=== PATIENT | female | born 1985 | race Caucasian/White ===

== ENCOUNTER 2017-03-07 05:32 | Outpatient (CLI) | payer MEDICAID ==
[~2017-03-07] VITALS: Ht 172.7 cm; Wt 77.1 kg
[~2017-03-07 05:32] MED LIST: BCP; DOCU100C37 PO; DOXY100C2 PO; HYDR-34 PO; HYDR-3583 PO; HYOS0.1217 PO; IBUP-1780 PO; MECL-124 PO; METR500T PO; NAPR-243 PO; NORG1TAB15 PO; OCP; ONDAN4ODT PO; ORTHOTRYCYCLINE; OXYC-465 PO; PNT40TEC PO; PNV91TAB3 PO; PRM25T PO; SCOP1PAT TD; [UNRECOGNIZED DRUG - OTHER] PO
[2017-03-07] MEDS ORDERED: NORG1TAB14 PO (10:19)
== END 2017-03-07 13:47 ==
LOC: PREOP 05:32
PROVIDERS: ATTEND Obstetrics & Gynecology
DX: Z01.818 Encounter for other preprocedural examination (principal); N93.8 Other specified abnormal uterine and vaginal bleeding; N92.1 Excessive and frequent menstruation with irregular cycle; D64.9 Anemia, unspecified

== ENCOUNTER 2017-04-06 17:15 | Emergency (ER) | payer BC ==
[~2017-04-06] VITALS: Ht 170.2 cm; Wt 77.1 kg
[~2017-04-06 17:15] MED LIST changes: +DOCU-143 PO; +NORG1TAB14 PO
[2017-04-06 20:19] LABS: BILIRUBIN,URINE NEGATIVE (NEGATIVE); CLARITY,URINE CLEAR; COLOR,URINE YELLOW; GLUCOSE, URINE (UA) NEGATIVE (NEGATIVE); KETONES,URINE 1+ (NEGATIVE); LEUKOCYTE ESTERASE ,URINE NEGATIVE (NEGATIVE); NITRITE,URINE NEGATIVE (NEGATIVE); PH,URINE 6.5 (5-9); PROTEIN,URINE NEGATIVE (NEGATIVE); UROBILINOGEN,URINE NORMAL (NORMAL)
[2017-04-06 20:20] LABS: BASOPHILS % (AUTO) 0 % (0-10); EOSINOPHILS # (AUTO) 0.5 10^3/uL (0.0-0.3); EOSINOPHILS % (AUTO) 7 % (0-10); HEMATOCRIT 40 % (35-52); HEMOGLOBIN 14.8 G/DL (11.5-16.0); LYMPHOCYTES # (AUTO) 2.4 X 10^3 (1.0-4.0); LYMPHOCYTES % (AUTO) 35 % (12-44); MEAN CORPUSCULAR HEMOGLOBIN 31 PG (25-34); MEAN CORPUSCULAR HGB CONC 37 G/DL (32-36); MEAN CORPUSCULAR VOLUME 84 FL (80-99); MONOCYTES # (AUTO) 0.4 X 10^3 (0.0-1.0); MONOCYTES % (AUTO) 6 % (0-12); NEUTROPHILS # (AUTO) 3.6 X 10^3 (1.8-7.8); NEUTROPHILS % (AUTO) 52 % (42-75); PLATELET COUNT 266 10^3/uL (130-400); RED BLOOD COUNT 4.76 10^6/uL (4.35-5.85); RED CELL DISTRIBUTION WIDTH 11.8 % (10.0-14.5); WHITE BLOOD COUNT 6.9 10^3/uL (4.3-11.0)
[2017-04-06 20:38] LABS: BACTERIA,URINE TRACE /HPF; RBC,URINE 25-50 /HPF; WBC,URINE RARE /HPF
[2017-04-06 20:40] LABS: ALANINE AMINOTRANSFERASE 14 U/L (0-55); ALBUMIN 4.3 GM/DL (3.2-4.5); ALKALINE PHOSPHATASE 69 U/L (40-136); BILIRUBIN,TOTAL 0.8 MG/DL (0.1-1.0); BUN/CREATININE RATIO 7; CALCIUM 9.2 MG/DL (8.5-10.1); CARBON DIOXIDE 25 MMOL/L (21-32); CHLORIDE 105 MMOL/L (98-107); CREATININE SERUM 0.75 MG/DL (0.60-1.30); GFR ESTIMATED > 60; GLUCOSE 88 MG/DL (70-105); POTASSIUM 3.3 MMOL/L (3.6-5.0); SODIUM 141 MMOL/L (135-145); TOTAL PROTEIN 7.1 GM/DL (6.4-8.2)
--- NOTE | 2017-04-06 21:00 | ED GU-Female ---
General Chief Complaint: -Female Stated Complaint: POST HYSTERECTOMY/VAGINAL BLEEDING Nursing Triage Note: PT STATES HAD HYSTERECTOMY ON MAR 14 STATES HAS HAD VAGINAL DISCHARGE BROWNISH, TODAY AFTER EXAM HAS BRIGHT RED BLEEDING NOTED WAS TOLD BY DR TRACY CONT TO HAVE BLEEDING Nursing Sepsis Screen: No Definite Risk Source: patient Exam Limitations: no limitations (VESNA PRESTON MD) History of Present Illness Date Seen by Provider: Apr 06, 2017 Time Seen by Provider: 20:55 Initial Comments The patient is a 32-year-old white female who presents with complaints of post hysterectomy vaginal bleeding. She states that she had a laparoscopic total hysterectomy and salpingo-oophorectomy performed by Dr. Domínguez March 14. She had recently had her postop checkup. She been having little bit of chocolate brown discharge. She had been told that if she had more significant or red bleeding that she should come to the emergency room for evaluation. This began today. Timing/Duration: this afternoon Severity/Quality: cramping Location: suprapubic Radiation: none (VESNA PRESTON MD) Allergies and Home Medications Allergies Coded Allergies: No Known Drug Allergies (Unverified , 03/07/17) Home Medications Docusate Sodium 100 Mg Capsule, 100 MG PO BID, #60 Prescribed by: RENNY GUERRA on 03/14/17 1318 Ibuprofen 800 Mg Tablet, 800 MG PO Q6H PRN for PAIN, #60 Prescribed by: RENNY GUERRA on 03/14/17 1318 Oxycodone HCl/Acetaminophen 1 Each Tablet, 1-2 TAB PO Q4H PRN for PAIN, #60 Prescribed by: RENNY GUERRA on 03/14/17 1318 Constitutional: see HPI EENTM: no symptoms reported Respiratory: no symptoms reported Cardiovascular: no symptoms reported Gastrointestinal: no symptoms reported Genitourinary: see HPI Musculoskeletal: no symptoms reported Skin: no symptoms reported Psychiatric/Neurological: No Symptoms Reported Endocrine: No Symptoms Reported Hematologic/Lymphatic: No Symptoms Reported (VESNA PRESTON MD) Past Jmobcua-Owypkh-Xzyogl Hx Patient Social History Alcohol Use: Denies Use Recreational Drug Use: No Smoking Status: Former Smoker Type Used: Cigarettes Former Smoker, Quit: Sep 30, 2014 Recent Foreign Travel: No Contact w/Someone Who Travel: No Recent Infectious Disease Expo: No Recent Hopitalizations: Yes (HYSTERECTOMY) (VESNA PRESTON MD) Immunizations Up To Date Tetanus Booster (TDap): Unknown PED Vaccines UTD: No Date of Influenza Vaccine: Dec 25, 2016 (VESNA PRESTON MD) Seasonal Allergies Seasonal Allergies: Yes (VESNA PRESTON MD) Surgeries History of Surgeries: No (CYST REMOVED FROM CHEST CHILD) Surgeries: Section, Hysterectomy (VESNA PRESTON MD) Respiratory History of Respiratory Disorde: No (VESNA PRESTON MD) Cardiovascular History of Cardiac Disorders: No (VESNA PRESTON MD) Neurological History of Neurological Disord: No (VESNA PRESTON MD) 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 System Hx 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 Disorders: Yes (DUB) Sexually Transmitted Disease: No HIV/AIDS: No Female 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 Disorders: Menstrual Problems, 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 (VESNA PRESTON MD) Genitourinary Genitourinary Disorders: UTI-Chronic (VESNA PRESTON MD) Gastrointestinal History of Gastrointestinal Di: No (VESNA PRESTON MD) Musculoskeletal History of Musculoskeletal Dis: No (VESNA PRESTON MD) Endocrine History of Endocrine Disorders: No (VESNA PRESTON MD) HEENT Loss of Vision: Bilateral Hearing Impairment: Denies (VESNA PRESTON MD) Cancer History of Cancer: No (VESNA PRESTON MD) Psychosocial History of Psychiatric Problem: No (VESNA PRESTON MD) Integumentary History of Skin or Integumenta: No (VESNA PRESTON MD) Blood Transfusions History of Blood Disorders: No Adverse Reaction to a Blood Tr: No (N/A) (VESNA PRESTON MD) Family Medical History Family Medial History: Hypertension 19 MOTHER (VESNA PRESTON MD) Family Medial History: Hypertension 19 MOTHER (JANNY JASON) Physical Exam Vital Signs Vital Sign - Last 12Hours 04/06/17 17:45 Temp 97.4 Pulse 70 Resp 18 B/P (MAP) 146/77 (100) Pulse Ox 95 (JANNY JASON) Vital Signs Capillary Refill : Less Than 3 Seconds (VESNA PRESTON MD) General Appearance: no apparent distress HEENT: normal ENT inspection Neck: full range of motion Cardiovascular: normal peripheral pulses, regular rate, rhythm, no edema, no gallop, no JVD, no murmur Respiratory: chest non-tender, lungs clear, normal breath sounds, no respiratory distress, no accessory muscle use, respiratory distress Gastrointestinal: normal bowel sounds, non tender, soft, no organomegaly, no pulsatile mass, abnormal bowel sounds, other Back: normal inspection Extremities: normal range of motion, non-tender, normal inspection, no pedal edema, no calf tenderness Neurologic/Psychiatric: special events assistant II-XII nml as tested, no motor/sensory deficits, alert, normal mood/affect, oriented x 3 Skin: normal color, warm/dry, cyanosis, cool, diaphoresis, pallor (VESNA PRESTON MD) Progress/Results/Core Measures Suspected Sepsis Recent Fever Within 48 Hours: No Infection Criteria Present: None New/Unexplained Altered Menta: No Sepsis Screen: No Definite Risk Sepsis Diagnosis: SIRS Temperature:97.4 Pulse: 70 Respiratory Rate: 18 Laboratory Tests 04/06/17 20:11: White Blood Count 6.9 Blood Pressure 146 /77 Mean: 100 Laboratory Tests 04/06/17 20:11: Creatinine 0.75, Platelet Count 266, Total Bilirubin 0.8 (VESNA PRESTON MD) Results/Orders Lab Results Laboratory Tests Test 04/06/17 20:05 04/06/17 20:11 Range/Units Urine Color YELLOW Urine Clarity CLEAR Urine pH 6.5 5-9 Urine Specific [place] 1.010 L 1.016-1.022 Urine Protein NEGATIVE NEGATIVE Urine Glucose (UA) NEGATIVE NEGATIVE Urine Ketones 1+ H NEGATIVE Urine Nitrite NEGATIVE NEGATIVE Urine Bilirubin NEGATIVE NEGATIVE Urine Urobilinogen NORMAL NORMAL MG/DL Urine Leukocyte Esterase NEGATIVE NEGATIVE Urine RBC (Auto) 5+ H NEGATIVE Urine RBC 25-50 H /HPF Urine WBC RARE /HPF Urine Squamous Epithelial Cells 2-5 /HPF Urine Crystals NONE /LPF Urine Bacteria TRACE /HPF Urine Casts NONE /LPF Urine Mucus NEGATIVE /LPF Urine Culture Indicated NO White Blood Count 6.9 4.3-11.0 10^3/uL Red Blood Count 4.76 4.35-5.85 10^6/uL Hemoglobin 14.8 11.5-16.0 G/DL Hematocrit 40 35-52 % Mean Corpuscular Volume 84 80-99 FL Mean Corpuscular Hemoglobin 31 25-34 PG Mean Corpuscular Hemoglobin Concent 37 H 32-36 G/DL Red Cell Distribution Width 11.8 10.0-14.5 % Platelet Count 266 130-400 10^3/uL Mean Platelet Volume 10.0 7.4-10.4 FL Neutrophils (%) (Auto) 52 42-75 % Lymphocytes (%) (Auto) 35 12-44 % Monocytes (%) (Auto) 6 0-12 % Eosinophils (%) (Auto) 7 0-10 % Basophils (%) (Auto) 0 0-10 % Neutrophils # (Auto) 3.6 1.8-7.8 X 10^3 Lymphocytes # (Auto) 2.4 1.0-4.0 X 10^3 Monocytes # (Auto) 0.4 0.0-1.0 X 10^3 Eosinophils # (Auto) 0.5 H 0.0-0.3 10^3/uL Basophils # (Auto) 0.0 0.0-0.1 10^3/uL Sodium Level 141 135-145 MMOL/L Potassium Level 3.3 L 3.6-5.0 MMOL/L Chloride Level 105 98-107 MMOL/L Carbon Dioxide Level 25 21-32 MMOL/L Anion Gap 11 5-14 MMOL/L Blood Urea Nitrogen 5 L 7-18 MG/DL Creatinine 0.75 0.60-1.30 MG/DL Estimat Glomerular Filtration Rate > 60 BUN/Creatinine Ratio 7 Glucose Level 88 70-105 MG/DL Calcium Level 9.2 8.5-10.1 MG/DL Total Bilirubin 0.8 0.1-1.0 MG/DL Aspartate Amino Transf (AST/SGOT) 13 5-34 U/L Alanine Aminotransferase (ALT/SGPT) 14 0-55 U/L Alkaline Phosphatase 69 40-136 U/L Total Protein 7.1 6.4-8.2 GM/DL Albumin 4.3 3.2-4.5 GM/DL (JANNY JASON) Vital Signs/I&O Vital Sign - Last 12Hours 04/06/17 17:45 Temp 97.4 Pulse 70 Resp 18 B/P (MAP) 146/77 (100) Pulse Ox 95 (JANNY JASON) Vital Signs/I&O Capillary Refill : Less Than 3 Seconds (VESNA PRESTON MD) Blood Pressure Mean: 100 Progress Note : Time: 00:51 Progress Note Discussed case with Dr. Preston and the patient. Understanding is that she had some brownish discharge but just turned bright red she came to the ER for evaluation. Since her hemoglobin is good the plan is to rule out intraperitoneal or pelvic fluid collection consistent with blood or abscess and as we don't see anything on the CT scan she can follow up outpatient with Dr. Domínguez. Patient reports she just went to the bathroom and did not have any blood in her urine or see any blood in the toilet bowl. (JANNY JASON) Diagnostic Imaging Diagonstic Imaging: CT Plain Films/CT/US/NM/MRI: abdomen, pelvis Comments No free fluid or air. Stat read impression uterus is not visualized consistent with the patient's history of a hysterectomy. No definite evidence of fluid collection in the expected location of the uterus. Evaluation is limited without IV contrast. Reviewed: Reviewed by Me (JANNY JASON) Transfer of Care Transfer of Care Time: 23:00 Care transferred to: Marshal (JANNY JASON) Departure Impression Impression: Primary Impression: Abnormal uterine bleeding unrelated to menstrual cycle Additional Impression: H/O hysterectomy for benign disease Disposition: HOME, SELF-CARE Condition: Improved Departure-Patient Inst. Decision time for Depature: 01:01 (JANNY JASON) Referrals: [facility] (PCP/Family) Primary Care Physician Patient Instructions: Hysterectomy (DC) Add. Discharge Instructions: 1 pelvic rest for at least the next 6 weeks or until cleared by your loom technician. Touch bases with Dr. Domínguez Sunday morning at his clinic at [phone] and see if he needs seen based on whether or not her having any bleeding. A few spotting over the next couple days is not going to be unusual. However if your bleeding starts getting worse or you begin to develop chest pain , shortness of breath, nausea, fevers or chills then you should return to the ER for evaluation and management. All discharge instructions reviewed with patient and/or family. Voiced understanding. Copy Copies To 1: RENNY DOMÍNGUEZ MD, RODNEY K MD Apr 06, 2017 21:00 JANNY JASON Apr 07, 2017 00:55
[2017-04-07 01:16] VITALS: BP 128/66
--- NOTE | 2017-04-07 07:43 | Diagnostic Imaging Report ---
CLINICAL INDICATION: Patient had hysterectomy on March 14 and states has had vaginal discharge which is brownish. Today after exam patient has bright red bleeding. EXAMINATION: CT scan of the pelvis performed without IV contrast. Sagittal and coronal reformatted images are created. COMPARISON: CT scan of the abdomen and pelvis with contrast dated 02/27/2013. FINDINGS: There is no evidence of acute abdominal or pelvic process. There is no intra-abdominal/pelvic free fluid or fat stranding. There is interval removal of the previously seen uterus. The bilateral adnexal regions are unremarkable. Bladder is partially fluid filled and otherwise unremarkable. Phleboliths are noted in the pelvis. Bones show no significant interval abnormality. IMPRESSION: 1: Interval postop hysterectomy with no evidence of acute process. There is no fluid collection, fat stranding or suggestion of acute process on this non-IV contrasted exam. 2: The remainder of the pelvis is unremarkable. I agree with [facility] report. Dictated by: Dictated on workstation # [id number]
--- OUTSIDE RECORDS SUMMARY | 2017-04-08 09:20 | XMS REPORT ---
Author Author NEAL AGRAWAL Organization [facility] Address [address] [place] [address] Care Team Providers Care Couture Dressmaker Name Role Phone NEAL AGRAWAL Unavailable PROBLEMS Type Condition ICD9-CM Code [id number] Code Onset Dates Condition Status SNOMED Code Problem Vaginal itching L29.8 Active 35423084 Problem Dysuria R30.0 Active 96730435 Assessment Dysuria R30.0 Nov, Active 28550520 Problem Metrorrhagia N92.1 Active 94920084 Problem Dizziness and giddiness R42 Active 917374258 ALLERGIES Substance Reaction Event Type Date Status N.K.D.A. Unknown Non Drug Allergy Nov, Unknown SOCIAL HISTORY No smoking Hx information available PLAN OF CARE VITAL SIGNS Height 67 in 2015-12-06 Weight 243 lbs 2015-12-06 Heart Rate 88 bpm 2015-12-06 Respiratory Rate 16 2015-12-06 BMI 38.06 kg/m2 2015-12-06 Blood pressure systolic 124 mmHg 2015-12-06 Blood pressure diastolic 82 mmHg 2015-12-06 MEDICATIONS Medication Instructions Dosage Frequency Start Date End Date Duration Status Pyridium 200 mg Orally Three times a day 1 tablet after meals 8h Nov, Nov, 03 days Active RESULTS Name Result Date Reference Range UA LONG DIP (IN HOUSE) 2015-12-06 Lot # [id number] Exp date 11/2016 Clarity clear Color reddish Odor none GLU Negative MIRNA negative KET negative SG <1.005 BLO 3+ pH 6.0 Protein Negative URO 0.2 NIT Negative MIKIE Negative Lot # Exp date CULTURE, URINE 2015-12-06 Urine Culture, Routine Final report Result 1 No growth PROCEDURES Procedure Date Ordered Related Diagnosis Body Site URINALYSIS, AUTO, W/O SCOPE Dec 06, 2015 LAB NOT BILLED BY [facility] Dec 06, 2015 Office Visit, Est Pt., Level 3 Dec 06, 2015 IMMUNIZATIONS No Known Immunizations
--- OUTSIDE RECORDS SUMMARY | 2017-04-08 09:20 | XMS REPORT ---
Author Author MICHAELA MOLINA [facility] eClinicalWorks Address Unknown Phone Unavailable Care Team Providers Care Lawyer Probate Name Role Phone MICHAELA MOLINA CP Unavailable Allergies, Adverse Reactions, Alerts Substance Reaction Event Type N.K.D.A. Info Not Available Non Drug Allergy Problems Problem Type Condition Code Onset Dates Condition Status Problem Unspecified sinusitis (chronic) 473.9 Active Problem Allergic rhinitis, cause unspecified 477.9 Active Problem Abdominal pain, right lower quadrant 789.03 Active Problem Dysuria R30.0 Active Problem Unspecified contraceptive management V25.9 Active Problem Vaginal itching L29.8 Active Problem Screening for malignant neoplasm of the cervix V76.2 Active Problem Acute sinusitis, unspecified 461.9 Active Problem Metrorrhagia 626.6 Active Problem Unspecified breast screening V76.10 Active Assessment Dysuria R30.0 Active Assessment Vaginal itching L29.8 Active Problem Contact dermatitis and other eczema, due to unspecified cause 692.9 Active Problem Other specified erythematous condition 695.89 Active Problem Other malaise and fatigue 780.79 Active Problem Dizziness and giddiness 780.4 Active Problem Urinary tract infection, site not specified 599.0 Active Problem Other acute sinusitis 461.8 Active Medications Medication Code System Code Instructions Start Date End Date Status Dosage Diflucan [facility] [id number] 150 MG Orally x1, repeat in 72 hrs Jan 01, 2015 1 tablet Procedures Procedure Coding System Code Date CULTURE, BACTERIA, OTHER CPT-4 19803 Jan 01, 2015 Office Visit, Est Pt., Level 3 CPT-4 96485 Jan 01, 2015 URINALYSIS, AUTO, W/O SCOPE CPT-4 32648 Jan 01, 2015 Vital Signs Date/Time: Jan 01, 2015 Temperature 99.4 F Weight 252.4 lbs Height 67 in BMI 39.53 Index Blood Pressure Diastolic 80 mmHg Blood Pressure Systolic 106 mmHg Cardiac Monitoring Heart Rate 74 bpm Results Name Result Date Reference Range Unit Abnormality Flag UA W/CULTURE IF INDICATED (IN HOUSE) Summary Purpose eClinicalWorks Submission
--- OUTSIDE RECORDS SUMMARY | 2017-04-08 09:20 | XMS REPORT ---
Author Author CARLOS OLGUIN Organization [employer] Address Unknown Phone Unavailable Care Team Providers Care Digital Press Operator Name Role Phone CARLOS OLGUIN CP Unavailable Allergies No Known Allergies Problems Problem Type Condition Code Onset Dates Condition Status Problem Dysuria R30.0 Active Problem Metrorrhagia N92.1 Active Problem Vaginal itching L29.8 Active Problem Dizziness and giddiness R42 Active Assessment Dental examination Z01.20 Active Medications No Known Medications Procedures Procedure Coding System Code Date Billing Notes on claim CPT-4 EC109 Jan 13, 2015 Results No Known Results Summary Purpose eClinicalWorks Submission
--- OUTSIDE RECORDS SUMMARY | 2017-04-08 09:20 | XMS REPORT ---
Author NEAL [facility] eClinicalWorks Address Unknown Phone Unavailable Care Team Providers Care Wood Grainer Name Role Phone NEAL AGRAWAL CP Unavailable Allergies, Adverse Reactions, Alerts Substance Reaction Event Type N.K.D.A. Info Not Available Non Drug Allergy Problems Problem Type Condition Code Onset Dates Condition Status Problem Dysuria R30.0 Active Problem Metrorrhagia N92.1 Active Problem Vaginal itching L29.8 Active Problem Dizziness and giddiness R42 Active Assessment Upper respiratory infection with cough and congestion J06.9 Active Medications No Known Medications Procedures Procedure Coding System Code Date Office Visit, Est Pt., Level 3 CPT-4 96117 Feb 04, 2016 Vital Signs Date/Time: Feb 04, 2016 Cardiac Monitoring Heart Rate 78 bpm Weight 234.2 lbs Height 67 in BMI 36.68 Index Blood Pressure Diastolic 70 mmHg Blood Pressure Systolic 128 mmHg Results No Known Results Summary Purpose eClinicalWorks Submission
--- OUTSIDE RECORDS SUMMARY | 2017-04-08 09:21 | XMS REPORT | Continuity of Care Document ---
Author Author [facility] Organization [facility] Address Unknown Phone Unavailable Allergies Active Description Code Type Severity Reaction Onset Reported/Identified Relationship to Patient Clinical Status Yes No Known Drug Allergies [id number] Drug Allergy Unknown N/A 03/07/2017 Medications There is no data. Problems Date Dx Coded Attending Type Code Diagnosis Diagnosed By 12/27/2010 V25.01 CONTRACEPTION - ORAL CONTRACEPTION 12/27/2010 V72.31 WAREHOUSER EXAM, ROUTINE 12/27/2010 V25.01 CONTRACEPTION - ORAL CONTRACEPTION 12/27/2010 V72.31 WAREHOUSER EXAM, ROUTINE 12/27/2010 V25.01 CONTRACEPTION - ORAL CONTRACEPTION 12/27/2010 V72.31 WAREHOUSER EXAM, ROUTINE 12/27/2010 ANALIA JIMENEZ APRNIDI A V25.01 CONTRACEPTION - ORAL CONTRACEPTION 12/27/2010 TONY SUTHERLAND KJ A V72.31 WAREHOUSER EXAM, ROUTINE 12/27/2010 TERRELL HUGHES APRN V25.01 CONTRACEPTION - ORAL CONTRACEPTION 12/27/2010 TERRELL HUGHES APRN V72.31 WAREHOUSER EXAM, ROUTINE 12/27/2010 VESTA LEMUS APRN N V25.01 CONTRACEPTION - ORAL CONTRACEPTION 12/27/2010 VESTA LEMUS APRN N V72.31 WAREHOUSER EXAM, ROUTINE 12/27/2010 MAGDALENO DONICKOLASA K V25.01 CONTRACEPTION - ORAL CONTRACEPTION 12/27/2010 MAGDALENO DO MARY ALICE K V72.31 WAREHOUSER EXAM, ROUTINE 12/27/2010 ARMANI SUTHERLAND, JOSUE R V25.01 CONTRACEPTION - ORAL CONTRACEPTION 12/27/2010 ARMANI SUTHERLAND JOSUE R V72.31 WAREHOUSER EXAM, ROUTINE 12/27/2010 FAMILIA SUTHERLAND, JORGE ALBERTO R V25.01 CONTRACEPTION - ORAL CONTRACEPTION 12/27/2010 FAMILIA SUTHERLAND, JORGE ALBERTO R V72.31 WAREHOUSER EXAM, ROUTINE 12/27/2010 TONY SUTHERLAND KJ A V25.01 CONTRACEPTION - ORAL CONTRACEPTION 12/27/2010 KJ JIMENEZ APRN A V72.31 WAREHOUSER EXAM, ROUTINE 12/27/2010 FAMILIA SUTHERLAND JORGE ALBERTO R V25.01 CONTRACEPTION - ORAL CONTRACEPTION 12/27/2010 FAMILIA SUTHERLAND JORGE ALBERTO R V72.31 WAREHOUSER EXAM, ROUTINE 12/27/2010 AYSE BARBOSA APRNINA R V25.01 CONTRACEPTION - ORAL CONTRACEPTION 12/27/2010 FAMILIA SUTHERLAND JORGE ALBERTO R V72.31 WAREHOUSER EXAM, ROUTINE 11/29/2011 695.89 OTHER SPECIFIED ERYTHEMATOUS CONDITIONS 11/29/2011 695.89 OTHER SPECIFIED ERYTHEMATOUS CONDITIONS 11/29/2011 695.89 OTHER SPECIFIED ERYTHEMATOUS CONDITIONS 11/29/2011 KJ JIMENEZ APRN A 695.89 OTHER SPECIFIED ERYTHEMATOUS CONDITIONS 11/29/2011 TERRELL HUGHES APRN 695.89 OTHER SPECIFIED ERYTHEMATOUS CONDITIONS 11/29/2011 VESTA LEMUS APRN N 695.89 OTHER SPECIFIED ERYTHEMATOUS CONDITIONS 11/29/2011 MARY ALICE MAGDALENO DO 695.89 OTHER SPECIFIED ERYTHEMATOUS CONDITIONS 11/29/2011 JOSUE LOMELI APRN R 695.89 OTHER SPECIFIED ERYTHEMATOUS CONDITIONS 11/29/2011 AYSE BARBOSA APRNINA R 695.89 OTHER SPECIFIED ERYTHEMATOUS CONDITIONS 11/29/2011 KJ JIMENEZ APRN A 695.89 OTHER SPECIFIED ERYTHEMATOUS CONDITIONS 11/29/2011 AYSE BARBOSA APRNINA R 695.89 OTHER SPECIFIED ERYTHEMATOUS CONDITIONS 11/29/2011 AYSE BARBOSA APRNINA R 695.89 OTHER SPECIFIED ERYTHEMATOUS CONDITIONS 12/04/2011 692.9 DERMATITIS CONTACT UNSPECIFIED 12/04/2011 692.9 DERMATITIS CONTACT UNSPECIFIED 12/04/2011 692.9 DERMATITIS CONTACT UNSPECIFIED 12/04/2011 KJ JIMENEZ APRN A 692.9 DERMATITIS CONTACT UNSPECIFIED 12/04/2011 TERRELL HUGHES APRN 692.9 DERMATITIS CONTACT UNSPECIFIED 12/04/2011 VESTA LEMUS APRN N 692.9 DERMATITIS CONTACT UNSPECIFIED 12/04/2011 MARY ALICE MAGDALENO DO K 692.9 DERMATITIS CONTACT UNSPECIFIED 12/04/2011 JOSUE LOMELI APRN R 692.9 DERMATITIS CONTACT UNSPECIFIED 12/04/2011 JORGE ALBERTO BARBOSA APRN R 692.9 DERMATITIS CONTACT UNSPECIFIED 12/04/2011 TONY SUTHERLAND, KJ A 692.9 DERMATITIS CONTACT UNSPECIFIED 12/04/2011 FAMILIA SCOTTN, JORGE ALBERTO R 692.9 DERMATITIS CONTACT UNSPECIFIED 12/04/2011 FAMILIA SCOTTN, JORGE ALBERTO R 692.9 DERMATITIS CONTACT UNSPECIFIED 03/20/2012 789.03 ABDOMINAL PAIN RIGHT LOWER QUADRANT 03/20/2012 789.03 ABDOMINAL PAIN RIGHT LOWER QUADRANT 03/20/2012 789.03 ABDOMINAL PAIN RIGHT LOWER QUADRANT 03/20/2012 KJ JIMENEZ APRN A 789.03 ABDOMINAL PAIN RIGHT LOWER QUADRANT 03/20/2012 TERRELL HUGHES APRN 789.03 ABDOMINAL PAIN RIGHT LOWER QUADRANT 03/20/2012 LUTZ KAYDENJEANCARLOS SUTHERLAND, VESTA N 789.03 ABDOMINAL PAIN RIGHT LOWER QUADRANT 03/20/2012 MARY ALICE MAGDALENO DO K 789.03 ABDOMINAL PAIN RIGHT LOWER QUADRANT 03/20/2012 JOSUE LOMELI APRN 789.03 ABDOMINAL PAIN RIGHT LOWER QUADRANT 03/20/2012 AYSE BARBOSA APRNINA R 789.03 ABDOMINAL PAIN RIGHT LOWER QUADRANT 03/20/2012 ANALIA JIMENEZ APRNIDI A 789.03 ABDOMINAL PAIN RIGHT LOWER QUADRANT 03/20/2012 FAMILIA SUTHERLAND, JORGE ALBERTO R 789.03 ABDOMINAL PAIN RIGHT LOWER QUADRANT 03/20/2012 FAMILIA SUTHERLAND, JORGE ALBERTO R 789.03 ABDOMINAL PAIN RIGHT LOWER QUADRANT 07/11/2012 626.6 METRORRHAGIA 07/11/2012 V25.9 CONTRACEPTION MANAGEMENT 07/11/2012 626.6 METRORRHAGIA 07/11/2012 V25.9 CONTRACEPTION MANAGEMENT 07/11/2012 KJ JIMENEZ APRN A 626.6 METRORRHAGIA 07/11/2012 ANALIA JIMENEZ APRNIDI A V25.9 CONTRACEPTION MANAGEMENT 07/11/2012 TERRELL HUGHES APRN T 626.6 METRORRHAGIA 07/11/2012 TERRELL HUGHES APRN V25.9 CONTRACEPTION MANAGEMENT 07/11/2012 LUTZ KAYDENJEANCARLOS SUTHERLAND, VESTA N 626.6 METRORRHAGIA 07/11/2012 LUTZSANA MONIQUEJEANCARLOS SUTHERLAND, VESTA N V25.9 CONTRACEPTION MANAGEMENT 07/11/2012 MAGDALENO DO MARY ALICE K 626.6 METRORRHAGIA 07/11/2012 MAGDALENO DO MARY ALICE K V25.9 CONTRACEPTION MANAGEMENT 07/11/2012 ARMANI GIRLS TENNIS COACH, JOSUE R 626.6 METRORRHAGIA 07/11/2012 ARMANI SCOTTN, JOSUE R V25.9 CONTRACEPTION MANAGEMENT 07/11/2012 FAMILIA GIRLS TENNIS COACH, JORGE ALBERTO R 626.6 METRORRHAGIA 07/11/2012 FAMILIA GIRLS TENNIS COACH, JORGE ALBERTO R V25.9 CONTRACEPTION MANAGEMENT 07/11/2012 TONY GIRLS TENNIS COACH, KJ A 626.6 METRORRHAGIA 07/11/2012 TONY GIRLS TENNIS COACH, KJ A V25.9 CONTRACEPTION MANAGEMENT 07/11/2012 FAMILIA GIRLS TENNIS COACH, JORGE ALBERTO R 626.6 METRORRHAGIA 07/11/2012 FAMILIA GIRLS TENNIS COACH, JORGE ALBERTO R V25.9 CONTRACEPTION MANAGEMENT 07/11/2012 FAMILIA SCOTTN, JORGE ALBERTO R 626.6 METRORRHAGIA 07/11/2012 FAMILIA GIRLS TENNIS COACH, JORGE ALBERTO R V25.9 CONTRACEPTION MANAGEMENT 07/05/2013 TERRELL HUGHES APRN 599.0 URINARY TRACT INFECTION 07/05/2013 VESTA LEMUS APRN N 599.0 URINARY TRACT INFECTION 07/05/2013 RASTA GASTELUM, MARY ALICE K 599.0 URINARY TRACT INFECTION 07/05/2013 ARMANI SUTHERLAND, JOSUE R 599.0 URINARY TRACT INFECTION 07/05/2013 FAMILIA SCOTTN, JORGE ALBERTO R 599.0 URINARY TRACT INFECTION 07/05/2013 TONY SUTHERLAND, KJ A 599.0 URINARY TRACT INFECTION 07/05/2013 FAMILIA SCOTTN, JORGE ALBERTO R 599.0 URINARY TRACT INFECTION 07/05/2013 FAMILIA SUTHERLAND, JORGE ALBERTO R 599.0 URINARY TRACT INFECTION 08/26/2013 VESTA LEMUS APRN N 461.8 OTHER ACUTE SINUSITIS 08/26/2013 VESTA LEMUS APRN N 780.4 DIZZINESS AND GIDDINESS 08/26/2013 MAGDALENO DO, MARY ALICE K 461.8 OTHER ACUTE SINUSITIS 08/26/2013 MAGDALENO DO, MARY ALICE K 780.4 DIZZINESS AND GIDDINESS 08/26/2013 PRICILA LOMELI APRNIA R 461.8 OTHER ACUTE SINUSITIS 08/26/2013 KARL LOMELI APRNRICIA R 780.4 DIZZINESS AND GIDDINESS 08/26/2013 FAMILIA SUTHERLAND JORGE ALBERTO R 461.8 OTHER ACUTE SINUSITIS 08/26/2013 FAMILIA GIRLS TENNIS COACH, JORGE ALBERTO R 780.4 DIZZINESS AND GIDDINESS 08/26/2013 TONY GIRLS TENNIS COACH, KJ A 461.8 OTHER ACUTE SINUSITIS 08/26/2013 TONY GIRLS TENNIS COACH, KJ A 780.4 DIZZINESS AND GIDDINESS 08/26/2013 FAMILIA GIRLS TENNIS COACH, JORGE ALBERTO R 461.8 OTHER ACUTE SINUSITIS 08/26/2013 FAMILIA GIRLS TENNIS COACH, JORGE ALBERTO R 780.4 DIZZINESS AND GIDDINESS 08/26/2013 FAMILIA GIRLS TENNIS COACH, JORGE ALBERTO R 461.8 OTHER ACUTE SINUSITIS 08/26/2013 FAMILIA GIRLS TENNIS COACH, JORGE ALBERTO R 780.4 DIZZINESS AND GIDDINESS 09/15/2013 RASTA DO, MARY ALICE K 477.9 RHINITIS 09/15/2013 ARMANI GIRLS TENNIS COACH, JOSUE R 477.9 RHINITIS 09/15/2013 FAMILIA GIRLS TENNIS COACH, JORGE ALBERTO R 477.9 RHINITIS 09/15/2013 TONY GIRLS TENNIS COACH, KJ A 477.9 RHINITIS 09/15/2013 FAMILIA GIRLS TENNIS COACH, JORGE ALBERTO R 477.9 RHINITIS 09/15/2013 FAMILIA GIRLS TENNIS COACH, JORGE ALBERTO R 477.9 RHINITIS 09/25/2013 ARMANI GIRLS TENNIS COACH, JOSUE R 473.9 UNSPECIFIED SINUSITIS (CHRONIC) 09/25/2013 FAMILIA GIRLS TENNIS COACH, JORGE ALBERTO R 473.9 UNSPECIFIED SINUSITIS (CHRONIC) 09/25/2013 TONY GIRLS TENNIS COACH, KJ A 473.9 UNSPECIFIED SINUSITIS (CHRONIC) 09/25/2013 FAMILIA GIRLS TENNIS COACH, JORGE ALBERTO R 473.9 UNSPECIFIED SINUSITIS (CHRONIC) 09/25/2013 FAMILIA SCOTTN, JORGE ALBERTO R 473.9 UNSPECIFIED SINUSITIS (CHRONIC) 10/16/2013 FAMILIA GIRLS TENNIS COACH, JORGE ALBERTO R 461.9 SINUSITIS ACUTE 10/16/2013 TONY GIRLS TENNIS COACH, KJ A 461.9 SINUSITIS ACUTE 10/16/2013 FAMILIA GIRLS TENNIS COACH, JORGE ALBERTO R 461.9 SINUSITIS ACUTE 10/16/2013 FAMILIA GIRLS TENNIS COACH, JORGE ALBERTO R 461.9 SINUSITIS ACUTE 11/11/2013 TONY SCOTTN, KJ A V76.10 BREAST CANCER SCREENING 11/11/2013 TONY SUTHERLAND, KJ A V76.2 CERVICAL CANCER SCREENING (PAP SMEAR) 11/11/2013 FAMILIA SCOTTN, JORGE ALBERTO R V76.10 BREAST CANCER SCREENING 11/11/2013 JORGE ALBERTO BARBOSA APRN R V76.2 CERVICAL CANCER SCREENING (PAP SMEAR) 11/11/2013 JORGE ALBERTO BARBOSA APRN R V76.10 BREAST CANCER SCREENING 11/11/2013 JORGE ALBERTO BARBOSA APRN V76.2 CERVICAL CANCER SCREENING (PAP SMEAR) 12/09/2013 JORGE ALBERTO BARBOSA APRN R 780.79 OTHER MALAISE AND FATIGUE 09/24/2015 RENNY MORRISON MD, Ot O24.419 GESTATIONAL DIABETES MELLITUS IN PREGNAN 09/24/2015 RENNY MORRISON MD, Ot Z01.818 ENCOUNTER FOR OTHER PREPROCEDURAL EXAMIN 09/24/2015 RENNY MORRISON MD, Ot Z11.2 ENCOUNTER FOR SCREENING FOR OTHER BACTER 09/24/2015 RENNY MORRISON MD, Ot Z3A.00 WEEKS OF GESTATION OF NOT SPEC 09/27/2015 RENNY MORRISON MD, Ot O24.419 GESTATIONAL DIABETES MELLITUS IN PREGNAN 09/27/2015 RENNY MORRISON MD, Ot Z01.818 ENCOUNTER FOR OTHER PREPROCEDURAL EXAMIN 09/27/2015 RENNY MORRISON MD, Ot Z11.2 ENCOUNTER FOR SCREENING FOR OTHER BACTER 09/27/2015 RENNY MORRISON MD, Ot Z3A.00 WEEKS OF GESTATION OF NOT SPEC 10/03/2015 RENNY MORRISON MD, Ot O24.419 GESTATIONAL DIABETES MELLITUS IN PREGNAN 10/03/2015 RENNY MORRISON MD, Ot O34.21 MATERNAL CARE FOR SCAR FROM PREVIOUS JESSICA 10/03/2015 RENNY MORRISON MD, Ot Z23 ENCOUNTER FOR IMMUNIZATION 10/03/2015 RENNY MORRISON MD, Ot Z37.0 SINGLE LIVE 10/03/2015 RENNY MORRISON MD, Ot Z3A.37 37 WEEKS GESTATION OF 03/07/2017 RENNY MORRISON MD, Ot D64.9 ANEMIA, UNSPECIFIED 03/07/2017 RENNY MORRISON MD, Ot N92.1 EXCESSIVE AND FREQUENT MENSTRUATION WITH 03/07/2017 RENNY MORRISON MD, Ot N93.8 OTHER SPECIFIED ABNORMAL UTERINE AND VAG 03/07/2017 RENNY MORRISON MD, Ot Z01.818 ENCOUNTER FOR OTHER PREPROCEDURAL EXAMIN 03/08/2017 RENNY MORRISON MD, Ot D64.9 ANEMIA, UNSPECIFIED 03/08/2017 RENNY MORRISON MD, Ot N92.1 EXCESSIVE AND FREQUENT MENSTRUATION WITH 03/08/2017 RENNY MORRISON MD Ot N93.8 OTHER SPECIFIED ABNORMAL UTERINE AND VAG 03/08/2017 RENNY MORRISON MD, Ot Z01.818 ENCOUNTER FOR OTHER PREPROCEDURAL EXAMIN 03/15/2017 RENNY MORRISON MD, Ot F17.210 NICOTINE DEPENDENCE, CIGARETTES, UNCOMPL 03/15/2017 RENNY MORRISON MD Ot N83.8 OTH NONINFLAMMATORY DISORD OF OVARY, FAL 03/15/2017 RENNY MORRISON MD, Ot 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 03/15/2017 RENNY MORRISON MD, Ot N92.0 EXCESSIVE AND FREQUENT MENSTRUATION WITH 03/15/2017 RENNY MORRISON MD Ot Z11.2 ENCOUNTER FOR SCREENING FOR OTHER BACTER 03/21/2017 RENNY MORRISON MD, Ot F17.210 NICOTINE DEPENDENCE, CIGARETTES, UNCOMPL 03/21/2017 RENNY MORRISON MD, Ot N83.8 OTH NONINFLAMMATORY DISORD OF OVARY, FAL 03/21/2017 RENNY MORRISON MD, Ot 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 03/21/2017 RENNY MORRISON MD, Ot Z11.2 ENCOUNTER FOR SCREENING FOR OTHER BACTER Procedures Code [place] [address] URINE TEST (IN- HOUSE) 07/11/2012 32949 TEST, URINE (IN- HOUSE) 03/18/2013 79304 UA W/ CULTURE IF INDICATED 07/05/2013 11300 PAP SMEAR 11/11/2013 Q0091 PAP SMEAR OBTAIN SMEAR 11/11/[address] SINUS W/O CONTRAST 11/18/2013 30565 TEST, URINE (IN- HOUSE) 12/09/2013 02356 UA W/ CULTURE IF INDICATED 12/09/2013 [id number] EXCISION OF GENITALIA SKIN , EXTERNAL KENIA 10/01/2015 [id number] EXTRACTION OF POC, LOW CERVICAL, OPEN AP 10/01/2015 Results Test Result Range Urine beta human chorionic gonadotropin (hCG) measurement - 03/14/17 11:00 Urine beta human chorionic gonadotropin (hCG) measurement NEGATIVE NEGATIVE Methicillin resistant Staphylococcus aureus (MRSA) screening culture - 11:00 Methicillin resistant Staphylococcus aureus (MRSA) screening culture NEG NRG Complete blood count (CBC) with automated white blood cell (WBC) differential - 03/14/17 11:13 Blood leukocytes automated count (number/volume) 5.6 10*3/uL 4.3-11.0 Blood erythrocytes automated count (number/volume) 5.27 10*6/uL 4.35-5.85 Venous blood hemoglobin measurement (mass/volume) 16.0 g/dL 11.5-16.0 Blood hematocrit (volume fraction) 44 % 35-52 Automated erythrocyte mean corpuscular volume 84 [foz_us] 80-99 Automated erythrocyte mean corpuscular hemoglobin (mass per erythrocyte) 30 pg 25-34 Automated erythrocyte mean corpuscular hemoglobin concentration measurement ( mass/volume) 36 g/dL 32-36 Automated erythrocyte distribution width ratio 11.9 % 10.0-14.5 Automated blood platelet count (count/volume) 285 10*3/uL 130-400 Automated blood platelet mean volume measurement 9.7 [foz_us] 7.4-10.4 Automated blood neutrophils/100 leukocytes 57 % 42-75 Automated blood lymphocytes/100 leukocytes 35 % 12-44 Blood monocytes/100 leukocytes 6 % 0-12 Automated blood eosinophils/100 leukocytes 2 % 0-10 Automated blood basophils/100 leukocytes 0 % 0-10 Blood neutrophils automated count (number/volume) 3.2 10*3 1.8-7.8 Blood lymphocytes automated count (number/volume) 2.0 10*3 1.0-4.0 Blood monocytes automated count (number/volume) 0.3 10*3 0.0-1.0 Automated eosinophil count 0.1 10*3/uL 0.0-0.3 Automated blood basophil count (count/volume) 0.0 10*3/uL 0.0-0.1 Blood type T Indirect antibody screen panel - 01/03/18 11:13 ABO+Rh group OP NRG Transfusion band number [id number] NRG Blood group antibody screen NEGATIVE NRG Complete urinalysis with reflex to culture - 04/06/17 20:05 Urine color determination YELLOW NRG Urine clarity determination CLEAR NRG Urine pH measurement by test strip 6.5 5-9 Specific gravity of urine by test strip 1.010 1.016- 1.022 Urine protein assay by test strip, semi-quantitative NEGATIVE NEGATIVE Urine glucose detection by automated test strip NEGATIVE NEGATIVE Erythrocytes detection in urine sediment by light microscopy 5+ NEGATIVE Urine ketones detection by automated test strip 1+ NEGATIVE Urine nitrite detection by test strip NEGATIVE NEGATIVE Urine total bilirubin detection by test strip NEGATIVE NEGATIVE Urine urobilinogen measurement by automated test strip (mass/volume) NORMAL NORMAL Urine leukocyte esterase detection by dipstick NEGATIVE NEGATIVE Automated urine sediment erythrocyte count by microscopy (number/high power field) [HPF] NRG Automated urine sediment leukocyte count by microscopy (number/high power field ) RARE NRG Bacteria detection in urine sediment by light microscopy TRACE NRG Squamous epithelial cells detection in urine sediment by light microscopy 2-5 NRG Crystals detection in urine sediment by light microscopy NONE NRG Casts detection in urine sediment by light microscopy NONE NRG Mucus detection in urine sediment by light microscopy NEGATIVE NRG Complete urinalysis with reflex to culture NO NRG Complete blood count (CBC) with automated white blood cell (WBC) differential - 04/06/17 20:11 Blood leukocytes automated count (number/volume) 6.9 10*3/uL 4.3-11.0 Blood erythrocytes automated count (number/volume) 4.76 10*6/uL 4.35-5.85 Venous blood hemoglobin measurement (mass/volume) 14.8 g/dL 11.5-16.0 Blood hematocrit (volume fraction) 40 % 35-52 Automated erythrocyte mean corpuscular volume 84 [foz_us] 80-99 Automated erythrocyte mean corpuscular hemoglobin (mass per erythrocyte) 31 pg 25-34 Automated erythrocyte mean corpuscular hemoglobin concentration measurement ( mass/volume) 37 g/dL 32-36 Automated erythrocyte distribution width ratio 11.8 % 10.0-14.5 Automated blood platelet count (count/volume) 266 10*3/uL 130-400 Automated blood platelet mean volume measurement 10.0 [foz_us] 7.4-10.4 Automated blood neutrophils/100 leukocytes 52 % 42-75 Automated blood lymphocytes/100 leukocytes 35 % 12-44 Blood monocytes/100 leukocytes 6 % 0-12 Automated blood eosinophils/100 leukocytes 7 % 0-10 Automated blood basophils/100 leukocytes 0 % 0-10 Blood neutrophils automated count (number/volume) 3.6 10*3 1.8-7.8 Blood lymphocytes automated count (number/volume) 2.4 10*3 1.0-4.0 Blood monocytes automated count (number/volume) 0.4 10*3 0.0-1.0 Automated eosinophil count 0.5 10*3/uL 0.0-0.3 Automated blood basophil count (count/volume) 0.0 10*3/uL 0.0-0.1 Comprehensive metabolic panel - 04/06/17 20:11 Serum or plasma sodium measurement (moles/volume) 141 mmol/L 135-145 Serum or plasma potassium measurement (moles/volume) 3.3 mmol/L 3.6-5.0 Serum or plasma chloride measurement (moles/volume) 105 mmol/L 98-107 Carbon dioxide 25 mmol/L 21-32 Serum or plasma anion gap determination (moles/volume) 11 mmol/L 5-14 Serum or plasma urea nitrogen measurement (mass/volume) 5 mg/dL 7-18 Serum or plasma creatinine measurement (mass/volume) 0.75 mg/dL 0.60-1.30 Serum or plasma urea nitrogen/creatinine mass ratio 7 NRG Serum or plasma creatinine measurement with calculation of estimated glomerular filtration rate > NRG Serum or plasma glucose measurement (mass/volume) 88 mg/dL 70-105 Serum or plasma calcium measurement (mass/volume) 9.2 mg/dL 8.5-10.1 Serum or plasma total bilirubin measurement (mass/volume) 0.8 mg/dL 0.1-1.0 Serum or plasma alkaline phosphatase measurement (enzymatic activity/volume) 69 U/L 40-136 Serum or plasma aspartate aminotransferase measurement (enzymatic activity/ volume) 13 U/L 5-34 Serum or plasma alanine aminotransferase measurement (enzymatic activity/volume ) 14 U/L 0-55 Serum or plasma protein measurement (mass/volume) 7.1 g/dL 6.4-8.2 Serum or plasma albumin measurement (mass/volume) 4.3 g/dL 3.2-4.5 Encounters ACCT No. Visit Date/Time Discharge Status Pt. Type Provider Facility Loc./Unit Complaint [id number] 04/06/2017 17:16:00 04/07/2017 01:16:00 DIS Emergency JANNY JASON MD [facility] ER POST HYSTERECTOMY/VAGINAL BLEEDING [id number] 03/14/2017 10:50:00 03/15/2017 09:10:00 [facility] [id number] 03/07/2017 05:32:00 03/07/2017 13:47:00 DIS Outpatient RENNY MORRISON MD [facility] PREOP DUB, MENOMETRORRHAGIA [id number] 09/24/2015 10:16:00 09/24/2015 10:35:00 DIS Outpatient RENNY MORRISON MD [facility] PREOP REPEAT DUE DATE [id number] 08/23/2013 15:19:00 08/23/2013 16:54:00 DIS Emergency [id number] 02/27/2013 15:13:00 02/27/2013 21:46:00 DIS Emergency [id number] 10/01/2015 09:51:00 ACT Inpatient RENNY MORRISON MD [facility] LDRP REPEAT DUE DATE Oct.17 [id number] 12/09/2013 17:12:00 12/09/2013 23:59:59 CLS Outpatient JORGE ALBERTO BARBOSA APRN [id number] 11/18/2013 18:08:00 11/18/2013 23:59:59 CLS Outpatient JORGE ALBERTO BARBOSA APRN [id number] 11/11/2013 17:22:00 11/11/2013 23:59:59 CLS Outpatient KJ JIMENEZ APRN [id number] 10/16/2013 15:33:00 10/16/2013 23:59:59 CLS Outpatient JORGE ALBERTO BARBOSA APRN [id number] 09/25/2013 16:10:00 09/25/2013 23:59:59 CLS Outpatient JOSUE LOMELI APRN [id number] 09/15/2013 16:15:00 09/15/2013 23:59:59 CLS Outpatient RASTA GASTELUMMARY ALICE Skinny [id number] 08/26/2013 07:54:00 08/26/2013 23:59:59 CLS Outpatient VESTA LEMUS APRN [id number] 07/05/2013 11:18:00 07/05/2013 23:59:59 CLS Outpatient TERRELL HUGHES APRN [id number] 03/18/2013 13:35:00 03/18/2013 23:59:59 CLS Outpatient KJ JIMENEZ APRN [id number] 03/20/2012 15:40:00 03/20/2012 23:59:59 CLS Outpatient [id number] 08/02/2012 07:55:00 Document Registration [id number] 07/11/2012 15:10:00 Document Registration
== END 2017-04-07 01:16 | disposition home or self-care (01) ==
LOC: EDUNIT# 17:15 → ER 17:16
DX: N93.8 Other specified abnormal uterine and vaginal bleeding (principal); Z90.710 Acquired absence of both cervix and uterus; Z87.891 Personal history of nicotine dependence; Z87.59 Personal history of other complications of pregnancy, childbirth and the puerperium; Z87.42 Personal history of other diseases of the female genital tract
CPT/HCPCS: 36415; 72192; 80053; 81000; 85025; 99283

== ENCOUNTER → 2017-07-09 | Outpatient (CLI) | payer BC | LOC: CARD 12:33 | PROVIDERS: ATTEND Nurse Practitioner Family | DX: R01.1 Cardiac murmur, unspecified (principal) | CPT/HCPCS: 93306 ==

== ENCOUNTER 2019-01-05 17:26 | Emergency (ER) | payer BC ==
[~2019-01-05] VITALS: Ht 170.1 cm; Wt 79.5 kg
[2019-01-05 17:43] LABS: BASOPHILS % (AUTO) 0 % (0-10); EOSINOPHILS # (AUTO) 0.1 10^3/uL (0.0-0.3); EOSINOPHILS % (AUTO) 2 % (0-10); HEMATOCRIT 43 % (35-52); HEMOGLOBIN 15.6 G/DL (11.5-16.0); LYMPHOCYTES # (AUTO) 2.5 X 10^3 (1.0-4.0); LYMPHOCYTES % (AUTO) 41 % (12-44); MEAN CORPUSCULAR HEMOGLOBIN 31 PG (25-34); MEAN CORPUSCULAR HGB CONC 36 G/DL (32-36); MEAN CORPUSCULAR VOLUME 85 FL (80-99); MEAN PLATELET VOLUME 9.7 FL (7.4-10.4); MONOCYTES # (AUTO) 0.5 X 10^3 (0.0-1.0); MONOCYTES % (AUTO) 9 % (0-12); NEUTROPHILS # (AUTO) 2.9 X 10^3 (1.8-7.8); NEUTROPHILS % (AUTO) 48 % (42-75); PLATELET COUNT 241 10^3/uL (130-400); RED CELL DISTRIBUTION WIDTH 12.1 % (10.0-14.5)
[2019-01-05 17:50] LABS: BILIRUBIN,URINE NEGATIVE (NEGATIVE); CLARITY,URINE CLEAR; COLOR,URINE YELLOW; GLUCOSE, URINE (UA) NEGATIVE (NEGATIVE); KETONES,URINE NEGATIVE (NEGATIVE); LEUKOCYTE ESTERASE ,URINE NEGATIVE (NEGATIVE); NITRITE,URINE NEGATIVE (NEGATIVE); PH,URINE 7 (5-9); PROTEIN,URINE NEGATIVE (NEGATIVE)
[2019-01-05 17:53] LABS: INR 1.1 (0.8-1.4); PROTHROMBIN TIME PATIENT 14.1 SEC (12.2-14.7)
[2019-01-05 17:54] LABS: BACTERIA,URINE TRACE /HPF; SQUAMOUS EPITHELIAL CELL,UR 0-2 /HPF
[2019-01-05 18:01] LABS: ALANINE AMINOTRANSFERASE 13 U/L (0-55); ALBUMIN 4.5 GM/DL (3.2-4.5); ALKALINE PHOSPHATASE 52 U/L (40-136); BILIRUBIN,TOTAL 0.6 MG/DL (0.1-1.0); BUN/CREATININE RATIO 7; CALCIUM 9.5 MG/DL (8.5-10.1); CARBON DIOXIDE 23 MMOL/L (21-32); CHLORIDE 104 MMOL/L (98-107); GFR ESTIMATED > 60; GLUCOSE 98 MG/DL (70-105); POTASSIUM 3.4 MMOL/L (3.6-5.0); SODIUM 141 MMOL/L (135-145); TOTAL PROTEIN 7.4 GM/DL (6.4-8.2)
--- NOTE | 2019-01-05 18:13 | ED Chest Pain ---
General Chief Complaint: Chest Pain Stated Complaint: CP History of Present Illness Date Seen by Provider: Jan 05, 2019 Time Seen by Provider: 17:35 Initial Comments 33-year-old female presents for chest pressure, she reports that it is extending up into her neck. It started approximately 3 days ago with some nausea, no vomiting or diarrhea. She denies having any regurgitation of food in her mouth. No history of prior cardiac disease, she was diagnosed with no murmur years ago and had a Holter with no follow-up for 1 more year. She does report being under increased stress at work lately. She denies any sleep disturbances. Timing/Duration: 2-3 days Severity/Quality: mild Location: epigastric Radiation: no radiation Prior CP/Workup: other (Holter) Allergies and Home Medications Allergies Coded Allergies: No Known Drug Allergies (Unverified , 03/07/17) Home Medications Docusate Sodium 100 Mg Capsule, 100 MG PO BID Prescribed by: RENNY GUERRA on 03/14/17 1318 Ibuprofen 800 Mg Tablet, 800 MG PO Q6H PRN for PAIN Prescribed by: RENNY GUERRA on 03/14/17 1318 Oxycodone HCl/Acetaminophen 1 Each Tablet, 1-2 TAB PO Q4H PRN for PAIN Prescribed by: RENNY GUERRA on 03/14/17 1318 Patient Home Medication List Home Medication List Reviewed: Yes Review of Systems Review of Systems Constitutional: no symptoms reported, see HPI Cardiovascular: See HPI, Chest Pain Gastrointestinal: See HPI, Nausea, Other (heartburn) All Other Systems Reviewed Negative Unless Noted: Yes Past Epinrqr-Stauec-Uuwvke Hx Past Med/Social Hx: Reviewed Nursing Past Med/Soc Hx Patient Social History Type Used: Cigarettes Former Smoker, Quit: Sep 30, 2014 Recent Foreign Travel: No Contact w/Someone Who Travel: No Recent Hopitalizations: Yes (HYSTERECTOMY) Immunizations Up To Date Tetanus Booster (TDap): Unknown PED Vaccines UTD: No Date of Influenza Vaccine: Dec 25, 2016 Seasonal Allergies Seasonal Allergies: Yes Past Medical History Surgeries: No (CYST REMOVED FROM CHEST CHILD) Section, Hysterectomy Respiratory: No Cardiac: No Neurological: No 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 Disorders: Yes (DUB) Female 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 Disorders: Menstrual 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, 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 0.0oz. 77.721649iw; 25.9 BMI Method:Stated General Appearance: No Apparent Distress, WD/WN HEENT: PERRL/EOMI, TMs Normal, Normal ENT Inspection, Pharynx Normal Neck: Full Range of Motion, Normal Inspection, Non Tender, Supple Respiratory: Chest Non Tender, Lungs Clear, Normal Breath Sounds Cardiovascular: Regular Rate, Rhythm, No Edema, No Murmur, Normal Peripheral Pulses Gastrointestinal: Normal Bowel Sounds, Non Tender, Soft Extremity: Normal Capillary Refill, Normal Inspection, Normal Range of Motion Neurologic/Psychiatric: Alert, Oriented x3, No Motor/Sensory Deficits, Normal Mood/Affect Skin: Normal Color, Warm/Dry Progress/Results/Core Measures Results/Orders Lab Results Laboratory Tests Test 01/05/19 17:35 01/05/19 17:43 Range/Units White Blood Count 6.0 4.3-11.0 10^3/uL Red Blood Count 5.09 4.35-5.85 10^6/uL Hemoglobin 15.6 11.5-16.0 G/DL Hematocrit 43 35-52 % Mean Corpuscular Volume 85 80-99 FL Mean Corpuscular Hemoglobin 31 25-34 PG Mean Corpuscular Hemoglobin Concent 36 32-36 G/DL Red Cell Distribution Width 12.1 10.0-14.5 % Platelet Count 241 130-400 10^3/uL Mean Platelet Volume 9.7 7.4-10.4 FL Neutrophils (%) (Auto) 48 42-75 % Lymphocytes (%) (Auto) 41 12-44 % Monocytes (%) (Auto) 9 0-12 % Eosinophils (%) (Auto) 2 0-10 % Basophils (%) (Auto) 0 0-10 % Neutrophils # (Auto) 2.9 1.8-7.8 X 10^3 Lymphocytes # (Auto) 2.5 1.0-4.0 X 10^3 Monocytes # (Auto) 0.5 0.0-1.0 X 10^3 Eosinophils # (Auto) 0.1 0.0-0.3 10^3/uL Basophils # (Auto) 0.0 0.0-0.1 10^3/uL Prothrombin Time 14.1 12.2-14.7 SEC INR Comment 1.1 0.8-1.4 Activated Partial Thromboplast Time 28 24-35 SEC Sodium Level 141 135-145 MMOL/L Potassium Level 3.4 L 3.6-5.0 MMOL/L Chloride Level 104 98-107 MMOL/L Carbon Dioxide Level 23 21-32 MMOL/L Anion Gap 14 5-14 MMOL/L Blood Urea Nitrogen 6 L 7-18 MG/DL Creatinine 0.90 0.60-1.30 MG/DL Estimat Glomerular Filtration Rate > 60 BUN/Creatinine Ratio 7 Glucose Level 98 70-105 MG/DL Calcium Level 9.5 8.5-10.1 MG/DL Corrected Calcium 9.1 8.5-10.1 MG/DL Magnesium Level 2.0 1.6-2.4 MG/DL Total Bilirubin 0.6 0.1-1.0 MG/DL Aspartate Amino Transf (AST/SGOT) 16 5-34 U/L Alanine Aminotransferase (ALT/SGPT) 13 0-55 U/L Alkaline Phosphatase 52 40-136 U/L Myoglobin 24.0 10.0-92.0 NG/ML Troponin I < 0.028 <0.028 NG/ML Total Protein 7.4 6.4-8.2 GM/DL Albumin 4.5 3.2-4.5 GM/DL Urine Color YELLOW Urine Clarity CLEAR Urine pH 7 5-9 Urine Specific [place] 1.030 H 1.016-1.022 Urine Protein NEGATIVE NEGATIVE Urine Glucose (UA) NEGATIVE NEGATIVE Urine Ketones NEGATIVE NEGATIVE Urine Nitrite NEGATIVE NEGATIVE Urine Bilirubin NEGATIVE NEGATIVE Urine Urobilinogen NORMAL NORMAL MG/DL Urine Leukocyte Esterase NEGATIVE NEGATIVE Urine RBC (Auto) NEGATIVE NEGATIVE Urine RBC NONE /HPF Urine WBC NONE /HPF Urine Squamous Epithelial Cells 0-2 /HPF Urine Crystals NONE /LPF Urine Bacteria TRACE /HPF Urine Casts NONE /LPF Urine Mucus NEGATIVE /LPF Urine Culture Indicated NO My Orders Orders - NASRIN RAINEY Cbc With Automated Diff (01/05/19 17:33) Magnesium (01/05/19 17:33) Chest 1 View, Ap/Pa Only (01/05/19 17:33) Ekg Tracing (01/05/19 17:33) Cardiac Profile 1 (01/05/19 17:33) Comprehensive Metabolic Panel (01/05/19 17:33) Myoglobin Serum (01/05/19 17:33) Protime With Inr (01/05/19 17:33) Partial Thromboplastin Time (01/05/19 17:33) O2 (01/05/19 17:33) Monitor-Rhythm Ecg Trace Only (01/05/19 17:33) Ed Iv/Invasive Line Start (01/05/19 17:33) Ua Culture If Indicated (01/05/19 17:33) Lidocaine 2% Viscous 15 Ml (Xylocaine Vi (01/05/19 18:15) Antacid Suspension (Mylanta Suspension (01/05/19 18:15) Medications Given in ED Current Medications Medications Dose Ordered Sig/Uriel Route Start Time Stop Time Status Last Admin Dose Admin Al Hydrox/Mg Hydrox/Simethicone 30 ml ONCE ONCE PO 01/05/19 18:15 01/05/19 18:16 DC 01/05/19 18:23 30 ML Lidocaine HCl 15 ml ONCE ONCE PO 01/05/19 18:15 01/05/19 18:16 DC 01/05/19 18:23 15 ML Vital Signs/I&O 01/05/19 01/05/19 01/05/19 17:30 17:30 19:06 Temp 36.2 Pulse 75 75 Resp 18 B/P (MAP) 159/74 (102) 123/82 (102) Pulse Ox 99 O2 Delivery Room Air Room Air Progress Progress Note : Time: 17:35 Progress Note Patient seen and evaluated, will obtain labs, EKG and chest x-ray. 1800 EKG shows no acute changes, recommended GI cocktail. 1830 patient reports improvement in her symptoms after the GI cocktail. She doesn't feel like it has completely resolved but it has improved greatly. 1850 patient continues to have no further symptoms. Discharge instructions and return precautions reviewed with her. Initial ECG Impression Date: Jan 05, 2019 Initial ECG Impression Time: 17:35 Initial ECG Rate: 57 Initial ECG Rhythm: Normal Sinus Initial ECG Intervals: Normal Initial ECG Intervals NJ 164, QRSD 84, QTc 420, QTC 409. [place] P 40, QRS 8, T 97. Initial ECG Impression: Normal Initial ECG Comparisson: No Previous ECG Available (with occasional PVCs) Diagnostic Imaging Diagonstic Imaging: Xray Plain Films/CT/US/NM/MRI: chest Comments NAME: [facility]ON[facility]AS [facility] REC#: [id number] PT STATUS: REG ER : 1985 PHYSICIAN: NASRIN RAINEY ADMIT DATE: 01/05/19/ER Signed Date of Exam: 01/05/19 CHEST 1 VIEW, AP/PA ONLY INDICATION: Chest tightness. EXAMINATION: Portable chest. FINDINGS: The lungs are well-aerated and clear. There is no air-trapping. The heart is not enlarged. No pulmonary edema. No hilar adenopathy. No pneumothorax or pleural effusion. No bony abnormality. IMPRESSION: Normal portable chest. Dictated by: Dictated on workstation # [id number] Dict: 01/05/191810 Trans: 01/05/191831 Interpreted by: NIRALI LAWRENCE MD Electronically signed by: NIRALI LAWRENCE MD 01/05/191831 Reviewed: Reviewed by Me Departure Impression Primary Impression: GERD (gastroesophageal reflux disease) Qualified Codes: K21.9 - Gastro-esophageal reflux disease without esophagitis Disposition: 01 HOME, SELF-CARE Condition: Improved Departure-Patient Inst. Decision time for Depature: 18:50 Referrals: [facility] (PCP/Family) Primary Care Physician Patient Instructions: Chest Pain That Is Not Caused by the Heart (DC), Acid Reflux (Gastroesophageal Reflux Disease), Adult (DC) Add. Discharge Instructions: Take [id number] Prilosec 20 mg once daily in the morning Take srgp-vbz-baqeupc Pepcid 20 mg at bedtime. Eat a bland diet, avoid spicy, fried foods. Increase water intake, 16 ounces every 2 hours while awake. Follow-up with your primary care provider if symptoms are not improving or worsen. Return to the emergency department as needed for acute health care problems. All discharge instructions reviewed with patient and/or family. Voiced understanding. NASRIN RAINEY Jan 05, 2019 18:13
[2019-01-05] MEDS ORDERED: ANTACID SUSP 30 ML UDC (MYLANTA) PO ONE (18:15)
[2019-01-05] MEDS ORDERED: LIDOCAINE 2% VISCOUS 15 ML UDC PO ONE (18:15)
--- NOTE | 2019-01-05 18:19 | Diagnostic Imaging Report ---
INDICATION: Chest tightness. EXAMINATION: Portable chest. FINDINGS: The lungs are well-aerated and clear. There is no air-trapping. The heart is not enlarged. No pulmonary edema. No hilar adenopathy. No pneumothorax or pleural effusion. No bony abnormality. IMPRESSION: Normal portable chest. Dictated by: Dictated on workstation # [id number]
[2019-01-05 19:06] VITALS: BP 123/82
--- NOTE | 2019-01-05 19:07 | NUR ---
pt states her pain is at a 1/10 and feels much better, pt self ambulates off of unit with belongings
== END 2019-01-05 19:07 | disposition home or self-care (01) ==
LOC: EDUNIT# 17:26 → ER 17:27
DX: K21.9 Gastro-esophageal reflux disease without esophagitis (principal); Z87.891 Personal history of nicotine dependence; Z90.710 Acquired absence of both cervix and uterus; Z87.440 Personal history of urinary (tract) infections; Z82.49 Family history of ischemic heart disease and other diseases of the circulatory system
CPT/HCPCS: 36415; 71045; 80053; 81000; 83735; 83874; 84484; 85025; 85610; 85730; 93005; 93041

== ENCOUNTER → 2019-07-28 | Outpatient (CLI) | payer BC ==
--- NOTE | 2019-07-28 10:45 | Diagnostic Imaging Report ---
INDICATION: Routine screening. COMPARISON: No prior mammograms are available for comparison. This is a baseline study. TECHNIQUE: 2D and 3D bilateral screening mammography was performed with CAD. FINDINGS: Both breasts are heterogeneously dense, limiting the sensitivity of mammography. No mass or malignant appearing microcalcifications are seen. The axillae are unremarkable. IMPRESSION: No mammographic features suspicious for malignancy are identified. ACR BI-RADS Category 1: Negative. Result letter will be mailed to the patient. Note: At least 10% of breast cancer is not imaged by mammography. Dictated by: Dictated on workstation # [id number]
== END ==
LOC: RAD 07:54
PROVIDERS: ATTEND Obstetrics & Gynecology
DX: Z12.31 Encounter for screening mammogram for malignant neoplasm of breast (principal)
CPT/HCPCS: 77063; 77067

== ENCOUNTER → 2020-12-13 | Outpatient (CLI) | payer BC ==
[~2020-12-13] MED LIST changes: -OXYC-465 PO; +OXYC-556 PO
== END ==
LOC: CARD 10:30
PROVIDERS: ATTEND Nurse Practitioner Family
DX: R00.2 Palpitations (principal); R01.1 Cardiac murmur, unspecified
CPT/HCPCS: 93225; 93226